=== PATIENT | male | born 1965 | race American Indian/Alaskan Native ===

== ENCOUNTER 2019-08-06 11:02 | Day surgery (SDC) | payer OTHER ==
--- NOTE | 2019-08-05 15:58 | Short Stay Summary ---
Short Stay Documentation Date of service: 08/06/19 - History H&P: obtained from office - Allergies and Medications Current Medications: Allergies No Known Allergies Allergy (Verified 08/05/19 10:20) Home Medications Medication Instructions Recorded Confirmed Last Taken Type Cyanocobalamin (Vitamin B-12) 1,000 mcg SL DAILY 08/05/19 08/05/19 Unknown History [Vitamin B-12] Ferrous Sulfate [Iron 325 MG] 325 mg PO Q72H 08/05/19 08/05/19 Unknown History Garlic 1,000 mg PO DAILY 08/05/19 08/05/19 Unknown History Multivit-Mins/Iron/Folic/Lycop 1 each PO DAILY 08/05/19 08/05/19 Unknown History [Centrum Ultra Men's Tablet] Ubidecarenone [Co Q-10] 100 mg PO DAILY 08/05/19 08/05/19 Unknown History Zinc [Zinc 50mg TAB] 50 mg PO DAILY 08/05/19 08/05/19 Unknown History Active Medications Acetaminophen (Tylenol) 1,000 mg PO PREOP ONE Stop: 08/06/19 06:01 Celecoxib (Celebrex) 200 mg PO PREOP NR Gabapentin (Gabapentin) 900 mg PO PREOP DONAAVN Sodium Chloride (Nacl 0.9% 1000 Ml) 1,000 mls @ 42 mls/hr IV DIRECT DONAVAN Cefazolin Sodium (Ancef/Sterile Water 2 Gm/20 Ml) 2 gm in 20 mls @ 80 mls/hr IV PREOP NR; Protocol Magnesium Oxide (Mag-Ox) 400 mg PO PREOP DONAVAN - Physical exam General appearance: no acute distress HEENT: Atraumatic Lungs: Normal air movement Male Genitourinary: left inguinal hernia Neurological: Normal speech - Brief post op/procedure progress note Date of procedure: 08/06/19 (dictation:[id number]) Pre-op diagnosis: LIH, possible RIH Post-op diagnosis: other (BIH L>R) Procedure: robotic assisted lap BIH repair with mesh IVF 1100cc EBL min Anesthesia: GETA Findings: BIH L>R. moderated sac on left. Surgeon: AQUILINO MCCARTNEY Design Assistant: ALLISON MENJIVAR Estimated blood loss: minimal Pathology: none Condition: stable - Hospital course Hospital course: uneventful - Disposition Condition at discharge: Stable Disposition: DC- TO HOME OR SELFCARE Short Stay Discharge Plan Activity: advance as tolerated Diet: regular Wound: open to air, keep clean and dry Special Instructions: no heavy lifting Additional Instructions: Post Operative Instructions Activity: no heavy lifting for next 1 week. May shower tomorrow. Pat dry the wound or wounds. Keep incision sites clean and dry After surgery, start with a light diet. Consider having a liquid diet first. If you do well, you can advance to a regular diet as you feel comfortable. Apply an ice pack to the wound or wounds for 10-20 minutes at a time. Do this at least 4-5 times a day. You can do it more if he would like. Pain Medications: For the first 48 hours, please use the prescriptions for Gabapentin, Celecoxib, and Tylenol on a scheduled basis. Please take Gabapentin 300mg twice a day Celecoxib 200mg twice a day Tylenol 500mg four time a day After 48 hours, then take 600 mg of ibuprofen every 6 hours as needed for pain or take 500 mg of Tylenol every 6 hours as needed for pain. You should alternate these 2 medicines. It is very important that you use the prescription narcotic pain medicine (hydrocodone) only for very severe pain. Do not take the prescription medicine before you try using the ibuprofen and Tylenol. We will call you in a couple of days to see how youre doing. If you have any questions or concerns, always feel free to call the clinic at any time. Follow up with: [facility] [Primary Care Provider] - 7 Days AQUILINO MCCARTNEY MD [Staff Physician] - 7 Days Forms: Outpatient Surgery DC Inst. Prescriptions: Acetaminophen [Acetaminophen TAB] 500 mg PO Q6H #8 tablet Celecoxib [celeBREX] 200 mg PO BID #4 capsule Gabapentin 900 mg PO BID #4 capsule Gabapentin 300 mg PO BID #4 cap HYDROcodone/APAP 5-325 [[place] 5-325 mg TAB] 1 each PO Q6HR PRN #10 tablet PRN Reason: Pain , Severe (7-10)
[~2019-08-06 11:02] MED LIST: ACETAMINOPHEN 500 MG TAB PO NR; CELECOXIB 200 MG CAP PO NR; GABAPENTIN 300 MG CAP PO SCH; MAGNESIUM OXIDE 400 MG TAB PO NR; SODIUM CHLORIDE 0.9% 1000 ML 1,000 ML IV SCH; ceFAZolin/Water 2 GM/20 ML 2 GM/20 ML SYRINGE IV NR
[2019-08-06] MEDS ORDERED: HYDROmorphone 1 MG/1 ML INJ IV PRN (12:33)
--- NOTE | 2019-08-06 12:36 | Anesthesia Consultation ---
Anesthesia Consult and Med Hx Date of service: 08/06/19 - Airway Anesthetic Teeth Evaluation: Good ROM Head & Neck: Adequate Mental/Hyoid Distance: Adequate Mallampati Class: Class III Intubation Access Assessment: Possibly Difficult (potential difficult mask - large christianson) - Pulmonary Exam CTA: Yes - Cardiac Exam Cardiac Exam: RRR - Pre-Operative Health Status ASA Pre-Surgery Classification: ASA2 Proposed Anesthetic Plan: General - Pulmonary Hx Smoking: No Hx Respiratory Symptoms: No - Cardiovascular System Hx Hypertension: Yes (not current on antihypertensives; uses garlic) Hx Heart Attack/AMI: No Hx Percutaneous Transluminal Coronary Angioplasty (PTCA): No - Central Nervous System CVA: No Hx Back Pain: Yes (sciatic nerves pain R>L) - Gastrointestinal Hx Gastroesophageal Reflux Disease: No - Endocrine Hx Renal Disease: No Hx Liver Disease: No Hx Insulin Dependent Diabetes: No Hx Non-Insulin Dependent Diabetes: No Hx Thyroid Disease: No - Other Systems Hx Obesity: No - Additional Comments Anesthesia Medical History Comments: No prior GA. No FHx anesthetic complications. Has been monitoring BP at home. Baseline BP 140s-150s/90s-100s.
--- NOTE | 2019-08-06 12:36 | Anesthesia Day of Surgery ---
Anesthesia Day of Surgery - Day of Surgery Patient Examined: Yes Patient H&P Reviewed: Yes Patient is NPO: Yes
[2019-08-06] MEDS ORDERED: GLYCOPYRROLATE 0.4 MG/2 ML INJ ONE ×2 (13:00→13:15)
[2019-08-06] MEDS ORDERED: MIDAZOLAM 2 MG/2 ML INJ IV NR (13:00)
[2019-08-06] MEDS ORDERED: LIDOCAINE (1%) 10 MG/1 ML VIAL 20 ML MDV ONE (13:02)
[2019-08-06] MEDS ORDERED: BUPIVACAINE-EPINEPHRINE/PF 0.5%-1:200,000 (30 ML) VIAL INFILTRATI ONE ×2 (13:03→14:18)
[2019-08-06] MEDS ORDERED: NEOSTIGMINE 10MG/10 ML INJ MDV ONE (13:15)
[2019-08-06] MEDS ORDERED: ROCURONIUM 50 MG/5 ML INJ IV ONE (13:15)
[2019-08-06] MEDS ORDERED: dexAMETHasone 20 MG/5 ML VIAL ONE (13:15)
[2019-08-06] MEDS ORDERED: PHENYLEPHRINE/NS 1,000 MCG/10 ML SYRINGE (OR USE) IV ONE (13:15)
[2019-08-06] MEDS ORDERED: ONDANSETRON 4 MG/2 ML INJ ONE (13:15)
[2019-08-06] MEDS ORDERED: LIDOCAINE MPF (2%) 20 MG/1 ML VIAL 5 ML ONE (13:15)
[2019-08-06] MEDS ORDERED: PROPOFOL 200 MG/20 ML VIAL IV ONE (13:15)
[2019-08-06] MEDS ORDERED: fentaNYL 250 MCG/5 ML INJ ONE (13:15)
[2019-08-06] MEDS ORDERED: LIDOCAINE (1%) 10 MG/1 ML VIAL 20 ML MDV INFILTRATI ONE (14:18)
[2019-08-06] MEDS ORDERED: SODIUM CHLORIDE 0.9% IRR 1,500 ML BOTTLE IR ONE (14:19)
--- NOTE | 2019-08-06 17:43 | Post Anesthesia Evaluation ---
- Post Anesthesia Evaluation Patient Participated: Yes Airway Patent: Yes Stable Respiratory Function: Yes Nausea/Vomiting: No Temp > 96.8F: Yes Pain Manageable: Yes Adequeate Hydration: Yes Anesthesia Complications: No
[2019-08-06 18:12] VITALS: BP 139/87
--- NOTE | 2019-08-07 14:37 | Operative Report ---
PREOPERATIVE DIAGNOSIS: Left inguinal hernia, possible right inguinal hernia. POSTOPERATIVE DIAGNOSIS: Bilateral inguinal hernias, left greater than right. PROCEDURE: Robotic-assisted laparoscopic bilateral inguinal hernia repair. ATTENDING PHYSICIAN: Shellie Villarreal MD MILLWORK ESTIMATOR: Dr. Thrasher. ANESTHESIA: General. ESTIMATED BLOOD LOSS: Minimal. FLUIDS: 1100 mL. FINDINGS: Moderate-size indirect left inguinal hernia and small indirect right inguinal hernia. IMPLANTS: Bard 3DMax mesh medium left and right. DRAINS: None. COMPLICATIONS: None. DISPOSITION: Stable, transferred to Recovery Room. INDICATIONS: This is a 53-year-old male who presented to the office with complaints of pain in the left groin. He was originally supposed to have surgery at the [facility]; however, this was delayed. The patient was in pain and could not wait, therefore, referral made to the community. The patient was assessed to be a good candidate for robotic repair. Procedure, risks, benefits were explained to the patient. Risks included, but were not limited to infection, bleeding, pain, injury to surrounding structures, possible recurrence, possible need for further procedures in the future. The patient understood and consented. OPERATIVE NOTE: The patient was brought to the operating room and placed on the table in supine position. After adequate general anesthesia was established, the patient was prepped and draped in usual sterile fashion. Antibiotics had been given prior to start of the case. SCDs were in place. Time-out was called. I began by placing a Veress needle in the left upper quadrant. I was able to insufflate on the first attempt. This was replaced with a 5 mm port. It was inserted using the Optiview technique. I entered the peritoneal cavity safely. There was no injury to the underlying structures. Pelvic area was examined. As mentioned, the patient was found to have an obvious left inguinal hernia and a small right inguinal hernia. Small tears were seen in the peritoneum and small indentation was seen at the internal ring. An 8-mm port was placed in the right upper quadrant, 12 mm port was placed in the midline a few centimeters above the umbilicus. The patient was placed in Trendelenburg position. The 5 mm port was replaced with an 8 mm port. Bilateral mesh gauze and sutures were inserted into the abdomen. I injected both areas medial to the anterior superior iliac spine with 10 mL of 0.5% Marcaine and 1% lidocaine for a nerve block. Robot was docked and then we converted over to a robotic case. I began by creating peritoneal flaps first on the right then on the left. Dissection was carried down first to identify the epigastric vessels. Same procedure was done on the right and left. I then dissected out the pubic symphysis and the pubic tubercles. Duncan's ligament was identified. We then started to move laterally and create that space. Hernia sac was dissected out on both sides as mentioned, the left was larger than the right. The left was more scarred down to the underlying structures. Extra time was required for this part of the dissection; however, I was able to reduce both sacs in their entirety. There was no injury to the underlying structures. We had a very nice skeletonization of the cord structures. The vas deferens was dissected all the way back to the level of the medial umbilical ligament on both sides. There was no evidence of any direct hernia, femoral or obturator, on either side. Once the peritoneum was dissected back a fair amount, the mesh was placed. It was secured to Duncan's ligament on either side with a 2-0 Vicryl stitch. One additional stitch was placed on the right side to the anterior abdominal wall and the mesh. The mesh lied very well in both sides. Peritoneum was closed on both sides with 3-0 V-Loc sutures. Two 1 cm holes were noted at the very bottom aspect of the peritoneal dissection. These were closed with 2-0 Vicryl sutures. On the left side, the hernia sac that was left over was used as part of the repair. This was sewn into the repair. Everything was hemostatic and repairs looked very good. We then undocked the robot converted back to laparoscopic. I removed all the needles. Our counts were correct. We removed the gauze. Everything looked very good. We desufflated the abdomen, removed the ports. I had closed the 12 mm port site with a 0 Vicryl stitch using the Lobo-Sasha fascial closure device. We had a good seal. Additional local was injected, 3-0 Vicryl was used to close the deep layer at the 12 mm port site including the anterior fascia. Skin sites were closed with 4-0 Monocryl subcuticular stitches. Skin was cleaned and dried. Dermabond was placed. The patient tolerated the procedure well. There were no complications. All counts were correct at the end of the case. I spoke with the sister at the end of the case by phone. JOB# [id number] TOMAS/ALICIA GRIFFIN
== END 2019-08-06 17:50 | disposition home or self-care (01) ==
LOC: OR 11:02
PROVIDERS: ATTEND Surgery
DX: K40.20 Bilateral inguinal hernia, without obstruction or gangrene, not specified as recurrent (principal); I10 Essential (primary) hypertension; F15.90 Other stimulant use, unspecified, uncomplicated; Z79.899 Other long term (current) drug therapy; Z98.890 Other specified postprocedural states
CPT/HCPCS: 49650; C1781; J0690; J1100; J2250; J2370; J2405; J2704; J2710; J3010; J7030; S2900